=== PATIENT | male | born 1960 | race Caucasian/White ===

== ENCOUNTER 2024-06-05 04:41 | Day surgery (SDC) | payer OTHER ==
[2024-05-31 15:43] VITALS: BMI 28.2
[2024-06-05] MEDS ORDERED: ceFAZolin SODIUM 1 GM VIAL ONE (11:31)
[2024-06-05] MEDS ORDERED: DEXAMETHASONE SOD PHOSPHATE 4 MG/1 ML VIAL ONE (11:31)
[2024-06-05] MEDS ORDERED: MIDAZOLAM HCL 2 MG/2 ML SINGLE DOSE VIAL ONE (11:31)
[2024-06-05] MEDS ORDERED: KETOROLAC TROMETHAMINE 30 MG/1 ML VIAL ONE (11:31)
[2024-06-05] MEDS ORDERED: PROPOFOL 20 ML ONE (11:31)
[2024-06-05] MEDS ORDERED: ONDANSETRON 4 MG/2 ML VIAL ONE (11:31)
[2024-06-05] MEDS: ceFAZolin SODIUM 1 GM VIAL IVPB ONE (11:35)
[2024-06-05] MEDS ORDERED: ELECTROLYTE-148 SOLN 1,000 ML IV SCH (11:45)
[2024-06-05 13:57] VITALS: BP 168/81; PULSE 57; RESP 18; TEMP 97.5
== END 2024-06-05 17:09 | disposition home or self-care (01) ==
LOC: JASU-SURG 04:41 → JASUSAT 04:41 → J8W 13:30 → JASUSAT 17:09
PROVIDERS: ATTEND Urology
PROC: 0TF4XZZ Fragmentation in Left Kidney Pelvis, External Approach (ICD-10-PCS; principal; 2024-06-05 09:30)
DX: N20.0 Calculus of kidney (principal)
CPT/HCPCS: 82962